=== PATIENT | female | born 1945 | race Caucasian/White ===

== ENCOUNTER → 2018-06-18 | Outpatient (CLI) | payer OTHER ==
[~2018-06-18] VITALS: Ht 162.6 cm; Wt 71.7 kg
[~2018-06-18] MED LIST: LIALDA1.2 GM PO; LISINOPRIL-HCT1 EACH PO; PRESERVISION T1 EACH PO; PROBIOTIC1 EAC1 PO; [UNRECOGNIZED DRUG - OTHER] PO
--- NOTE | ~2018-06-18 | PATH ---
[facility] [place] [address] [place] [address] PATHOLOGY RPT PROCEDURE Name: MONIKA SILVESTRE Room #: REG [facility] M.R.#: [id number] Admission: 06/18/18 Date of : 41 Discharge: Report #: [id number] Path Case #: [id number] [facility] Accession Number: [id number] . 01 Material submitted: . PART A: POLYP AT HEPATIC FLEXURE PART B: RANDOM BX CECUM AND ASCENDING HX COLON ULCERS R/O CROHNS DX PART C: RANDOM BX TRANSVERSE COLON HX COLON ULCERS R/O CROHNS DX PART D: RANDOM BX DESCENDING COLON HX COLON ULCERS R/O CROHNS DX PART E: RANDOM BX OF SIGMOID COLON HX COLON ULCERS R/O CROHNS DX PART F: RANDOM BX OF RECTUM HX COLON ULCERS R/O CROHNS DX . 01 Clinical history: . Hx of Crohn's . 02 Diagnosis: A. Colonic mucosa "polyp at hepatic flexure": - Inflamed polypoid mucosa with hyperplastic and focally adenomatous changes. - There is no evidence of high-grade dysplasia or malignancy. . B. Colonic mucosa "random biopsy cecum and ascending colon": - Mildly active chronic colitis with focal acute cryptitis and lamina propria chronic inflammation. (See comment) . C. Colonic mucosa "random biopsy transverse colon, history of colon ulcers": - Uqgd-wt-mbvduerf chronic active colitis with focal acute cryptitis and lamina propria inflammation with architectural distortion. (See comment) . D. Colonic mucosa "random biopsy descending colon, history of colon ulcers: - Moderately active chronic colitis with architectural distortion and with hftkvunt-ia-lmhiiv lamina propria inflammation. (See comment) . E. Colonic mucosa "random biopsy of sigmoid colon, history of colon ulcers": - Mild-to moderately active chronic colitis iwth focal acute cryptitis and focal mfih-it-iyglgxmi lamina propria inflammation. (See comment) . F. Colonic mucosa "random biopsy of rectum, history of colon ulcers": - Mildly active chronic colitis with focal acute cryptitis and mild lamina propria chronic inflammation. (See comment) . (SHA:coy; 06/19/2018) QMS/06/19/2018 . [address] [address] PATHOLOGY RPT PROCEDURE Name: MONIKA SILVESTRE Room #: REG [facility]#: [id number] Admission: 06/18/18 Date of : 41 Discharge: Report #: [id number] Path Case #: [id number] Comment: The colonic mucosa reveals jewo-nl-ydigqqne amount of cryptitis with qdku-ot-wmjwlozo lamina propria inflammation. There are no definite granulomas. There is focal architectural distortion. The differential includes inflammatory bowel disease, ulcerative colitis and Crohn's disease, and infectious colitis. . Suggest clinical and endoscopic correlation. . There is no evidence of dysplasia or malignancy. (SHA:coy; 06/19/2018) . 02 Electronically signed: . Andre Olivarez MD, Pathologist NPI- [id number] . 01 Gross description: . A. Received in formalin labeled "SilvestreMonika, polyp at hepatic flexure," is a single segment of koenig soft tissue measuring 0.6 cm in maximum dimension. The specimen is entirely submitted in cassette A1. . B. Received in formalin labeled "Monika Silvestre, random BX of cecum, Hx colon ulcers, rule out Crohn's," and additionally labeled on the requisition as "and ascending," are multiple segments of koenig soft tissue measuring 1.3 x 0.6 x 0.1 cm in aggregate dimensions. The specimen is filtered and entirely submitted in cassette B1. . C. Received in formalin labeled "Monika Silvestre, random BX transverse colon, Hx colon ulcers, rule out Crohn's," are 5 segments of koenig soft tissue measuring 0.9 x 0.6 x 0.2 cm in aggregate dimensions and ranging from 0.3 to 0.4 cm in maximum dimension. The specimen is submitted entirely in cassette C1. . D. Received in formalin labeled "Monika Silvestre, random BX of descending colon, Hx colon ulcers, rule out Crohn's," are multiple segments of koenig soft tissue measuring 1.6 x 0.3 x 0.1 cm in aggregate dimensions. The specimen is filtered and entirely submitted in cassette D1. . E. Received in formalin labeled "Monika Silvestre, random BX of sigmoid colon, Hx colon ulcers, rule out Crohn's," are 3 segments of koenig soft tissue measuring 1.1 x 0.8 x 0.3 cm in aggregate dimensions and ranging from 0.4 to 0.6 cm in maximum dimension. The specimen is submitted entirely in cassette E1. . F. Received in formalin labeled "Monika Silvestre, random BX of rectum, Hx colon ulcers, rule out Crohn's," are 4 segments of koenig soft tissue measuring 1.1 x 0.6 x 0.2 cm in aggregate dimensions and ranging from 0.3 to 0.4 cm in maximum dimension. The specimen is submitted entirely in [facility] [employer] [place] [address] PATHOLOGY RPT PROCEDURE Name: MONIKA SILVESTRE Room #: REG [facility] M..#: [id number] Admission: 06/18/18 Date of : 41 Discharge: Report #: [id number] Path Case #: [id number] cassette F1. (TSD; 06/18/2018) TOB/TOB . 02 Pathologist provided ICD-10: K63.9, K52.9 . 02 CPT . 252842, 903033, 287714, 520540, 982353, 461061 Specimen Comment: A courtesy copy of this report has been sent to Specimen Comment: [phone], . Specimen Comment: Report sent to / DR LAST Performed at: [address] [facility] [address], [place], [place] [id number] MD Hay Choe MD Phone: [phone] Performed at: 02 [facility] [place] [address] [place], [place] [id number] MD Mel Ware MD Phone: [phone]
--- NOTE | ~2018-06-18 | P ---
[facility] [address] [place] [address] PROCEDURE REPORT Name: KANDACE MARIE Room #: REG [facility]#: [id number] Admission: 06/18/18 Attend Phys: Josef Diaz MD Discharge: Date of : 41 Report #: [id number] THIS REPORT FOR: //name// CC: Josef Diaz Physician staff BRIELLE Damon BRIEF HISTORY: The patient is a 72-year-old woman with a history of colonic ulcers was thought to represent Crohn's disease. She was seen recently in the office. She presents today for colonoscopy to evaluate healing of her ulcers and to determine long-term management of her disease. PREOPERATIVE DIAGNOSIS: History of colonic ulcers suggestive of Crohn's disease. POSTOPERATIVE DIAGNOSES: 1. Sessile polyp, hepatic flexure. 2. Scattered small ulcers and erosions throughout the colon consistent with mild inflammatory bowel disease. 3. Small internal hemorrhoids. MEDICATIONS: Deep sedation with propofol per anesthesia. SPECIMENS: 1. Polyp, hepatic flexure. 2. Biopsies of cecum and ascending colon. 3. Biopsies of transverse colon. 4. Biopsy of descending colon. 5. Biopsy of sigmoid colon. 6. Biopsies of rectum. ESTIMATED BLOOD LOSS: 5 mL. PROCEDURE: Colonoscopy to the cecum and terminal ileum with snare polypectomy and biopsy. FINDINGS: Prior to propofol sedation, the procedure of colonoscopy was discussed with the patient as well as potential risks and its complications. She indicates she understands and desires to proceed. DESCRIPTION OF PROCEDURE: With the patient in the left lateral decubitus position, digital examination was completed, which revealed no abnormalities. Subsequently, the Olympus video colonoscope was introduced in the rectum and advanced under direct vision to the cecum. Done with minimal difficulty. The cecum was identified by the ileocecal valve and the appendiceal orifice. I was able to advance the scope across the ileocecal valve and visualize the distal [facility] [address] [place] [address] PROCEDURE REPORT Name: KANDACE MARIE ZAIRA Room #: REG [facility]#: [id number] Admission: 06/18/18 Attend Phys: Josef Diaz MD Discharge: Date of : 41 Report #: [id number] segment of the terminal ileum, which was normal. I was able to examine a good 15 cm of the distal ileum and there was no endoscopic evidence of inflammatory bowel disease. At that point, the scope was slowly withdrawn and careful circumferential views were obtained. Upon slow withdrawal of the scope, the prep was good. The mucosa was within normal limits, normal vascular pattern and normal light reflex. As we withdrew the scope, a 5-6 mm sessile superficially ulcerative polyp was seen in the hepatic flexure and removed by cold snare polypectomy. This may be an inflammatory polyp. The scope was further withdrawn and she was noted to have small scattered ulcers throughout the colon. They were seen throughout the transverse colon, descending colon and sigmoid colon. I did not see any obvious ulcers in the rectum. They all had a benign appearance. The vast majority were no more than 5 mm. There was no evidence of bleeding. Biopsies were obtained of the surrounding mucosa as well as the ulcerations upon withdrawal of the scope. The scope was withdrawn from the rectum and ulcers were not seen in the rectum. No other abnormalities were identified. Upon retroflexion, there was no evidence of perianal disease. Small hemorrhoids were seen. The scope was withdrawn. The patient tolerated the procedure well. CONDITION OF THE PATIENT UPON DISCHARGE: Following procedure, the patient drowsy, aroused, conversant and will be discharged to home when fully ambulatory. INSTRUCTIONS TO THE PATIENT AND FAMILY AT THE TIME OF DISCHARGE: The patient with history of colonic ulcers for followup exam. At this point, it was felt she likely has Crohn's disease. We will follow up on the pathology and make additional recommendations with regards to management. She is currently on mesalamine agents. The benefit of mesalamine in the face of likely Crohn's disease may be minimal. She has had budesonide in the past. Again, we will review biopsies and make further recommendations. May consider retreatment with budesonide as the patient is minimally symptomatic at this point in time. Her last colonoscopy was in 06/2015. Withdrawal time from the cecum was 15 minutes 32 seconds. By: [id number] Josef Diaz MD /jatinder
== END | disposition home or self-care (01) ==
LOC: GI 06:26
DX: D12.3 Benign neoplasm of transverse colon (principal); K52.9 Noninfective gastroenteritis and colitis, unspecified; K62.9 Disease of anus and rectum, unspecified; K63.9 Disease of intestine, unspecified; K64.8 Other hemorrhoids; I10 Essential (primary) hypertension; Z90.710 Acquired absence of both cervix and uterus; Z98.890 Other specified postprocedural states; Z87.891 Personal history of nicotine dependence; Z98.41 Cataract extraction status, right eye; Z98.42 Cataract extraction status, left eye; Z79.899 Other long term (current) drug therapy; Z88.8 Allergy status to other drugs, medicaments and biological substances